=== PATIENT | female | born 1985 | race Asian ===

== ENCOUNTER 2025-07-14 08:29 | Outpatient (CLI) | payer BC, SELFPAY ==
--- NOTE | 2025-07-14 08:35 | EST_ITS ---
Patient Info Name: Cat Perez Age: 40 years : 1985 Gender: Female Ht: 63 in Wt: 150 lbs BSA: 1.76 m2 HR: 74 bpm BP: 108 / 48 mmHg Exam Date: 07/14/2025 8:35 AM Patient Status: O Admit Date: 07/14/2025 Exam Type: CA stress test treadmill A treadmill exercise stress test was performed. Staff Attending Provider: Aleksandr Perea DO Exercise Technologist: Carol Galicia Exercise Physician: Aleksandr Perea DO Summary 1. 1. Negative Toni exercise stress test for ischemic ST changes by ECG criteria. 2. 2. Good functional capacity, achieving 12 METs of workload. 3. 3. Appropriate HR response to exercise. 4. 4. Appropriate HR recovery at 1 minute post exercise. 5. 5. No imaging with stress testing. 6. 6. Patient informed of the above results. Protocol: Toni Stress ECG Details Stage: REST Duration (min): 1 min : 50 sec Speed (mph): 0.0 Grade (%): 0 HR (bpm): 73 SBP (mmHg): 108 DBP (mmHg): 48 METS: --- Stage: REST Duration (min): 3 min : 38 sec Speed (mph): 0.0 Grade (%): 0 HR (bpm): 72 SBP (mmHg): 108 DBP (mmHg): 48 METS: --- Stage: REST Duration (min): 16 min : 42 sec Speed (mph): 0.0 Grade (%): 0 HR (bpm): 79 SBP (mmHg): 108 DBP (mmHg): 48 METS: --- Stage: STAGE 1 Duration (min): 1 min : 0 sec Speed (mph): 1.7 Grade (%): 10 HR (bpm): 100 SBP (mmHg): 108 DBP (mmHg): 48 METS: --- Stage: STAGE 1 Duration (min): 2 min : 0 sec Speed (mph): 1.7 Grade (%): 10 HR (bpm): 103 SBP (mmHg): 108 DBP (mmHg): 48 METS: --- Stage: STAGE 1 Duration (min): 3 min : 0 sec Speed (mph): 1.7 Grade (%): 10 HR (bpm): 108 SBP (mmHg): 132 DBP (mmHg): 104 METS: --- Stage: STAGE 2 Duration (min): 1 min : 0 sec Speed (mph): 2.5 Grade (%): 12 HR (bpm): 120 SBP (mmHg): 132 DBP (mmHg): 104 METS: --- Stage: STAGE 2 Duration (min): 2 min : 0 sec Speed (mph): 2.5 Grade (%): 12 HR (bpm): 113 SBP (mmHg): 132 DBP (mmHg): 104 METS: --- Stage: STAGE 2 Duration (min): 3 min : 0 sec Speed (mph): 2.5 Grade (%): 12 HR (bpm): 126 SBP (mmHg): 132 DBP (mmHg): 104 METS: --- Stage: STAGE 3 Duration (min): 1 min : 0 sec Speed (mph): 3.4 Grade (%): 14 HR (bpm): 142 SBP (mmHg): 183 DBP (mmHg): 108 METS: --- Stage: STAGE 3 Duration (min): 2 min : 0 sec Speed (mph): 3.4 Grade (%): 14 HR (bpm): 150 SBP (mmHg): 183 DBP (mmHg): 108 METS: --- Stage: STAGE 3 Duration (min): 3 min : 0 sec Speed (mph): 3.4 Grade (%): 14 HR (bpm): 157 SBP (mmHg): 183 DBP (mmHg): 108 METS: --- Stage: STAGE 4 Duration (min): 1 min : 0 sec Speed (mph): 4.2 Grade (%): 16 HR (bpm): 181 SBP (mmHg): 183 DBP (mmHg): 108 METS: --- Stage: STAGE 4 Duration (min): 1 min : 0 sec Speed (mph): 4.2 Grade (%): 16 HR (bpm): 181 SBP (mmHg): 183 DBP (mmHg): 108 METS: --- Stage: RECOVERY Duration (min): 0 min : 59 sec Speed (mph): 0.0 Grade (%): 0 HR (bpm): 144 SBP (mmHg): 110 DBP (mmHg): 99 METS: --- Stage: RECOVERY Duration (min): 1 min : 59 sec Speed (mph): 0.0 Grade (%): 0 HR (bpm): 110 SBP (mmHg): 110 DBP (mmHg): 99 METS: --- Stage: RECOVERY Duration (min): 2 min : 59 sec Speed (mph): 0.0 Grade (%): 0 HR (bpm): 102 SBP (mmHg): 110 DBP (mmHg): 99 METS: --- Stage: RECOVERY Duration (min): 3 min : 59 sec Speed (mph): 0.0 Grade (%): 0 HR (bpm): 92 SBP (mmHg): 142 DBP (mmHg): 64 METS: --- Stage: RECOVERY Duration (min): 4 min : 59 sec Speed (mph): 0.0 Grade (%): 0 HR (bpm): 91 SBP (mmHg): 94 DBP (mmHg): 66 METS: --- Stage: RECOVERY Duration (min): 5 min : 15 sec Speed (mph): 0.0 Grade (%): 0 HR (bpm): 92 SBP (mmHg): 94 DBP (mmHg): 66 METS: --- Rest HR: 79 bpm Peak HR: 182 bpm Rest Sys BP: 108 mmHg Peak Sys BP: 183 mmHg Max Pred HR: 182 bpm % Max Pred HR: 100 % Target HR: 155 bpm Max RPP: 33,306 bpm*mmHg Canela Score: 1 Termination Reason: Reached target heart rate or workload Cardiac Symptoms: Shortness of breath Max ST Seg Deviation: -1.80 mm Total Time: 10 min : 0 sec Rest Noriega BP: 48 mmHg Peak Noriega BP: 108 mmHg Angina Score: None Total METS: 12.1 Resting ECG Sinus rhythm. Stress ECG No ST changes. Arrhythmias None. Report Signatures
--- OUTSIDE RECORDS SUMMARY | 2025-07-14 08:39 | XMS_ITS | Clinical Summary ---
Author Organization [facility] Address [address] [place] [address] Care Team Providers Care Malter Operator Name Role Phone ArleyKathy jasso Nirav PRO Primary Care Provider [phone] Source Comments [facility],non-owned Affiliates and Associated Physician Practices is amultiple site organization consisting of ambulatory clinics and hospital sitesin [place], [place], [place] and [place]. This disclosure is being madepursuant to the Care Everywhere program and may not contain all information available regarding this patient. Last updated 18.[facility] Allergies Active Allergy Reactions Criticality Noted Date Comments Bacitracin Rash Medium 04/15/2015 Lanolin Rash Medium 05/20/2015 Latex Rash Medium 04/15/2015 Nkblylom-Zyhmkmcccu-Srswzwdil Rash Medium 2017 Medications * Be aware that medications may not be up to date on this document. Alwaysverify current medications with the patient. Cetirizine HCl (ZYRTEC ALLERGY PO) Active montelukast (SINGULAIR) 10 MG tablet Take 1 tablet by mouth once daily 30 tablet 05/26/2019 Active Resolved Problems Problem Noted Date Diagnosed Date Resolved Date Acute pharyngitis 12/21/2018 01/04/2019 Family History Medical History Relation Name Comments Diabetes - Type 2 Paternal Grandmother Relation Name Status Comments Father Alive Mother Alive Paternal Grandmother Alive Social History Tobacco Use Types Packs/Day Years Used Date Smoking Tobacco: Never Smokeless Tobacco: Never Alcohol Use Standard Drinks/Week Comments No 0 (1 standard drink = 0.6 oz pur e alcohol) Comments No Sex and Gender Information Value Date Recorded Sex Assigned at Not on file Legal Sex Female 10:10 AM CDT Gender Identity Not on file Sexual Orientation Not on file Last Filed Vital Signs Vital Sign Reading Time Taken Comments Blood Pressure 120/84 08/07/2019 2:05 PM BLOWER FEEDER DYED RAW STOCK Pulse 89 08/07/2019 2:05 PM BLOWER FEEDER DYED RAW STOCK Temperature 36.9 C (98.5 F) 08/07/2019 2:05 PM BLOWER FEEDER DYED RAW STOCK Respiratory Rate 16 08/07/2019 2:05 PM BLOWER FEEDER DYED RAW STOCK Oxygen Saturation 95% 08/07/2019 2:05 PM BLOWER FEEDER DYED RAW STOCK Inhaled Oxygen Concentration - - Weight 68 kg (150 lb) 08/07/2019 2:05 PM BLOWER FEEDER DYED RAW STOCK Height 160 cm (5' 3) 08/07/2019 2:05 PM BLOWER FEEDER DYED RAW STOCK Body Mass Index 26.57 08/07/2019 2:05 PM BLOWER FEEDER DYED RAW STOCK Plan of Treatment Health Maintenance Due Date Last Done Comments HIV SCREENING 2002 HEPATITIS C SCREENING 05/16/2005 DTAP/TDAP/TD VACCINES (1 - Tdap) 2006 HEPATITIS B VACCINE (1 of 3 - 19+ 3-dose series) 2006 HPV VACCINE (1 - 3-dose SCDM series) 2014 DEPRESSION SCREENING 09/21/2024 COVID-19 VACCINE (1 - 2023-2 5 season) 2025 INFLUENZA VACCINE (#1) 2025 9, 05/22/2014 ZOSTER VACCINE (1 of 2) 2037 HIB VACCINE Aged Out No longer eligi ble based on patient's age to complete this topic MENINGOCOCCAL (Group B) VACCINE SHARED DECISION-MAKING Aged Out No longer eligible based on patient's age to complete this topic MENINGOCOCCAL GROUPS A/C/Y/W VACCINE Aged Out No longer eligible b ased on patient's age to complete this topic PNEUMOCOCCAL VACCINE Aged Out No long er eligible based on patient's age to complete this topic Insurance [facility] Address[facility] [id number] [place] [phone] Care Teams Malter Operator Relationship Specialty Start Date End Date Kathy Flowers DO [address] [place] [address] [address] [place] [address] PCP - General Obstetrics and Gynecology 01/13/18
--- OUTSIDE RECORDS SUMMARY | 2025-07-14 08:39 | XMS_ITS | Clinical Summary ---
Author Organization [facility] Address [address] [place] [address] Care Team Providers Care Heel Stiffener Name Role Phone Cole Soler MD Primary Care Provider No, Physician Unavailable Allergies Active Allergy Reactions Criticality Noted Date Comments Bacitracin Rash Medium 04/15/2015 Lanolin Rash Medium 05/20/2015 Latex Itching,Rash Medium 04/15/2015 Eargjqek-Ombtujxtru-Alfklrgil Rash Medium 2017 Medications montelukast (SINGULAIR) 10 mg tablet Take 1 tablet (10 mg total) by mouth daily 05/26/2019 Active cetirizine (ZyrTEC) 10 mg tablet Take by mouth Active Active Problems No known active problems Medical History Medical History Date Comments Known health problems: none Social History Tobacco Use Types Packs/Day Years Used Date Smoking Tobacco: Never Assessed Passive Smoke Exposure: Never Smokeless Tobacco: Never Tobacco Cessation:Counseling Given: Not Answered Personal Safety Answer Date Recorded Have you ever been in or are you currently in a harmful physical or emotional relationship or is someone making you feel afraid or unsafe? Denies 04/03/2023 Comments No Sex and Gender Information Value Date Recorded Sex Assigned at Not on file Legal Sex Female 12:03 PM CDT Gender Identity Not on file Sexual Orientation Not on file Obstetrics History Last Filed Vital Signs Vital Sign Reading Time Taken Comments Blood Pressure 110/70 06/12/2023 3:04 PM CDT Pulse 92 06/12/2023 3:04 PM CDT Temperature 37.1 C (98.7 F) 06/12/2023 3:04 PM CDT Respiratory Rate 18 06/12/2023 3:04 PM CDT Oxygen Saturation 99% 06/12/2023 3:04 PM CDT Inhaled Oxygen Concentration - - Weight 69.4 kg (153 lb) 06/12/2023 3:04 PM CDT Height 160 cm (5' 3) 06/12/2023 3:04 PM CDT Body Mass Index 27.1 06/12/2023 3:04 PM CDT Plan of Treatment Health Maintenance Due Date Last Done Comments Cervical Cancer Screening 1987 Depression Screening 1987 Hepatitis C Screening 1987 Varicella Vaccines (1 of 2 - 13+ 2-dose series) 2000 Hepatitis B Screening 2005 Regular Well Visit/Exam 18-64 2005 HPV Vaccines (1 - 3-dose SCD M series) 2014 DTaP/Tdap/Td Vaccine (2 - Td or Tdap) 03/14/2025 03/14/2015 Covid-19 Vaccine (4 - 2024-2 6 season) 2025 08/20/2021, 12/15/2020, 11/20/2020 Influenza Vaccine (#1) 2025 , 05/22/2014 Pneumococcal vaccine <65 Aged Out No longer eligible based on patient's age to complete this topic Insurance BLUE ACC CHOICE OOS ANTHEM ACCESS CHOICE Care Teams Heel Stiffener Relationship Specialty Start Date End Date Cole Soler MD [address] [place], [place] [address] [address] PCP - General Family Medicine 04/03/23 No, Physician 04/03/23
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
--- OUTSIDE RECORDS SUMMARY | 2025-07-14 08:39 | XMS_ITS | Clinical Summary ---
Author Organization [facility] Address [address] [place] [id number] Care Team Providers Care Manager Retirement Name Role Phone Unavailable Primary Care Provider Unavailabl e Social History Tobacco Use Types Packs/Day Years Used Date Smoking Tobacco: Never Assessed Comments Unknown Sex and Gender Information Value Date Recorded Sex Assigned at Not on file Legal Sex Female 9:02 AM CDT Gender Identity Not on file Sexual Orientation Not on file Plan of Treatment Health Maintenance Due Date Last Done Comments Hepatitis C Virus (HCV) Screening 1985 TdaP Immunization 1987 Hepatitis B Immunization (1 of 3 - 19+ 3-dose series) 2006 Pap Smear 2008 Human Papillomavirus (HPV) Immunization (1 - 3-dose SCDM series) 2014 Cervical Cancer Screening (CCS) 2017 HPV/Cotest 2017 Influenza Immunization (#1) 2025 08/20/2021 SARS-COV-2 Immunization ( season) 2025 08/20/2021, 12/15/2020, 11/20/2020 Respiratory Syncytial Virus (RSV) Immunization (Adult) (1 - 1-dose 75+ series) 2062 Meningococcal Immunization (ACWY) Aged Out No longer eligible b ased on patient's age to complete this topic Pneumococcal Immunization Combined Aged Out No longer eligible b ased on patient's age to complete this topic Rotavirus Immunization Aged Out No lo nger eligible based on patient's age to complete this topic
== END 2025-07-14 08:30 | disposition home or self-care (01) ==
LOC: ANHCARD 08:33
PROVIDERS: PCP Emergency Medicine; Visit Provider Internal Medicine Cardiovascular Disease
DX: R07.9 Chest pain, unspecified (principal)
CPT/HCPCS: 93017

== ENCOUNTER 2025-08-26 17:02 | Emergency (ER) | payer BC, SELFPAY ==
[2025-08-26] VITALS (7 sets, daily range): BP systolic 117–143; BP diastolic 73–100; PULSE 72–83; RESP 14–21; TEMP 36.4–36.8; O2SAT 97–100
--- NOTE | ~2025-08-26 | XR_ITS ---
EXAMINATION: XR chest 2V, 08/26/2025 17:18 APPOINTMENT MANAGER HISTORY: cp COMPARISON: No comparisons available. Technique: 2 views obtained. Findings: The lungs are clear, no effusion. No pneumothorax. Heart is normal size. Mediastinal and hilar contours are within normal limits. Bony thorax no acute abnormality. Impression: No acute cardiopulmonary abnormality. Reviewed, dictated and finalized at location P. INTMENT MANAGER Impression: No acute cardiopulmonary abnormality.
--- NOTE | 2025-08-26 17:05 | ECG_ITS ---
Test Date: 2025-08-26 17:11:28 Measurements Intervals [place] Rate: 94 P: 48 IL: 148 QRS: 30 QRSD: 77 T: 42 QT: 347 QTc: 435 Interpretive Statements SINUS RHYTHM BASELINE ARTIFACT- I, III, AVR, AVL, AVF, V1-V6 NORMAL ECG No previous ECG available for comparison Electronically Signed On 08-27-2025 09:29:13 PLANT MECHANIC by Aleksandr Perea D.O.
--- OUTSIDE RECORDS SUMMARY | 2025-08-26 17:05 | XMS_ITS | Clinical Summary ---
Author Organization [facility] Address [address] [employer] | [place] [address] Care Team Providers Care Top Hat Body Maker Name Role Phone No, Pcp ASSISTANT CORPORATE CONTROLLER Primary Care Provider Unavailabl e Allergies Active Allergy Reactions Criticality Noted Date Comments Neosporin G.U. Irrigant Rash Low 07/15/2019 Medications montelukast (SINGULAIR) 10 mg tablet TAKE 1 TABLET BY MOUTH EVERY DAY 0 05/26/2019 Active Immunizations Immunization Administration Dates Next Due Flucelvax Trivalent PFS IM; Without Preservative (18+ mos) 07/15/2019 Family History Relation Status Comments Father Alive Mother Alive Social History Tobacco Use Types Packs/Day Years Used Date Smoking Tobacco: Never Smokeless Tobacco: Never Comments No Sex and Gender Information Value Date Recorded Sex Assigned at Not on file Legal Sex Female 9:01 AM EDT Gender Identity Not on file Sexual Orientation Not on file Last Filed Vital Signs Vital Sign Reading Time Taken Comments Blood Pressure 103/60 07/15/2019 9:37 AM CDT Pulse 63 07/15/2019 9:37 AM CDT Temperature 36.4 C (97.5 F) 07/15/2019 9:37 AM CDT Respiratory Rate 16 07/15/2019 9:37 AM CDT Oxygen Saturation 99% 07/15/2019 9:37 AM CDT Inhaled Oxygen Concentration - - Weight 69.4 kg (153 lb) 07/15/2019 9:37 AM CDT Height 160 cm (5' 3) 07/15/2019 9:37 AM CDT Body Mass Index 27.1 07/15/2019 9:37 AM CDT Plan of Treatment Not on file Medical Devices Not on file Care Teams Top Hat Body Maker Relationship Specialty Start Date End Date No, Pcp, ASSISTANT CORPORATE CONTROLLER N/A Do not use PCP - General Family Medicine 07/15/19"
--- OUTSIDE RECORDS SUMMARY | 2025-08-26 17:05 | XMS_ITS | Clinical Summary ---
Author Organization [facility] Address [address] [place] [address] Phone Care Team Providers Care Personalized Living Manager Nurse Name Role Phone Unavailable Primary Care Provider Unavailabl e Allergies Active Allergy Reactions Criticality Noted Date Comments Bacitracin Rash Medium 04/15/2015 Lanolin Rash Medium 05/20/2015 Latex Rash Medium 04/15/2015 Kaafakfn-Iszsdsbtdy-Gojguzmcp Rash Medium 2017 Neosporin G.U. Irrigant Rash [...] Comments Blood Pressure 120/60 11/22/2020 1:25 PM AUTOMOBILE RACER Pulse 73 01/08/2017 7:27 AM CDT Temperature 36.5 C (97.7 F) 01/08/2017 7:27 AM CDT Respiratory Rate 20 01/08/2017 7:27 AM CDT Oxygen Saturation 98% 01/08/2017 7:27 AM CDT Inhaled Oxygen Concentration - - Weight 67.9 kg (149 lb 12.8 oz) 11/22/2020 1:25 PM AUTOMOBILE RACER Height 160 cm (5' 3) 11/22/2020 1:25 PM AUTOMOBILE RACER Body Mass Index 26.54 11/22/2020 1:25 PM AUTOMOBILE RACER Plan of Treatment Health Maintenance Due Date [...] BASED SCREEN PAP Routine 11/22/2020 3:11 PM AUTOMOBILE RACER Encounter for gynecological examination without abnormal finding Routine cervical smear Special screening examination for human papillomavirus (HPV) from Last 3 Months or Most Recently Relevant to Health Maintenance Results * (ABNORMAL) CERV/VAG CYTO AGE BASED SCREEN PAP (11/22/2020 3:11 PM AUTOMOBILE RACER) COMMENT (PAP): SEE COMMENT 3:27 PM AUTOMOBILE RACER [facility] Comment: This order for age-based cervical cancer and STI screening follows ACOG guidelines(PB 168, 140, AHG036). See individual assays for performing site location. CLINICAL INFORMATION Information not provided 11/28/2020 3:27 PM AUTOMOBILE RACER [facility] LAST MENSTRUAL PERIOD INFORMATION NOT PROVIDED 11/28/2020 3:27 PM AUTOMOBILE RACER [facility] PREV PAP: INFORMATION NOT PROVIDED 11/28/2020 3:27 PM AUTOMOBILE RACER [facility] PREV BX: INFORMATION NOT PROVIDED 11/28/2020 3:27 PM AUTOMOBILE RACER [facility] SOURCE Endocervix 11/28/2020 3:27 PM AUTOMOBILE RACER [facility] ADEQUACY: SEE COMMENT 11/28/2020 3:27 PM AUTOMOBILE RACER [facility] Comment: Satisfactory for evaluation. Endocervical/transformation zone component present. Age and/or menstrual status not provided GENERAL CATEGORIZATION: EPITHELIAL CELL ABNORMALITY(A) 11/28/2020 3:27 PM AUTOMOBILE RACER [facility] PAP INTERP Atypical Squamous Cells of Undetermined Significance (ASC-US)(A) 11/28/2020 3:27 PM AUTOMOBILE RACER [facility] COMMENT SEE COMMENT 11/28/2020 3:27 PM AUTOMOBILE RACER [facility] Comment: This Pap test has been evaluated with computer assisted technology. Suggest clinical correlation and follow-up as clinically appropriate FILL MANAGER: SEE COMMENT 2020 3:27 PM AUTOMOBILE RACER [facility] Comment: CLAUDIA, CT(ASCP) CT screening location: [place] [address] [place] [address] PATHOLOGIST SEE COMMENT 11/28/2020 3:27 PM [facility] Comment: Negro Shrestha M.D., Board Certified in Anatomic Pathology and Cytopathology. (electronic signature) EXPLANATORY NOTE SEE COMMENT 3:27 PM AUTOMOBILE RACER [facility] Comment: EXPLANATORY NOTE: The Pap is a [...] Not Detected Not Detected 11/28/2020 3:27 PM AUTOMOBILE RACER [facility] Comment: Methodology: Epic Ambulatory Analyst-Mediated Amplification This assay detects E6/E7 viral messenger RNA (mRNA) from 14 high-risk HPV types (16,18,31,33,35,39,45,51,52,56,58,59,66,68). The analytical performance characteristics of this assay have been determined by [employer]. The modifications have not been cleared or approved by the FDA. This assay has been validated pursuant to the CLIA regulations and is used for clinical purposes. For additional information, please refer to http://education.Ortho [employer] Management/faq/BCX445x3 (This link if provided for information/ educational purposes only.) Genital SWAB OF ENDOCERVIX / Unknown Collection / Unknown 11/22/2020 3:11 PM AUTOMOBILE RACER 11/22/2020 7:18 PM AUTOMOBILE RACER Narrative [facility] - 11/28/2020 3:27 PM AUTOMOBILE RACER Performing Organization Information: Site ID: [id number] [facility] Address: [address] [place] [address] Director: Christopher Agarwal D.O., MPH Site ID: [id number] Name: [facility] Address: [address] [place] [address] Director: Divine Leach Kathy Flowers DO PATHOLOGY/CYTOLOGY ORDERABLES Final Result [facility] [phone] from Last 3 Months or Most Recently Relevant to Health Maintenance Insurance [facility] BLUE ACCESS CHOICE Advance Directives For more information, please contact: [phone] * Full Code (Latest Code Status on [...]
--- OUTSIDE RECORDS SUMMARY | 2025-08-26 17:05 | XMS_ITS | Clinical Summary ---
Author Organization [facility] Address [address] [place] [address] Care Team Providers Care Trout Farmer Name Role Phone ArleyKathy jasso Nirav PRO Primary Care Provider [phone] Source Comments [facility],non-owned Affiliates and Associated Physician Practices is amultiple site organization consisting of ambulatory clinics and hospital sitesin [place], [place], [place] and [place]. This disclosure is being madepursuant to the Care Everywhere program and may not contain all information available regarding this patient. Last updated 18.[facility] Allergies Active Allergy Reactions Criticality Noted Date Comments Bacitracin Rash Medium 04/15/2015 Lanolin Rash Medium 05/20/2015 Latex Rash Medium 04/15/2015 Wpbscrht-Atwdnyzaie-Agvizabrx Rash Medium 2017 Medications * Be aware [...] Comments Blood Pressure 120/84 08/07/2019 2:05 PM LEI SELLER Pulse 89 08/07/2019 2:05 PM LEI SELLER Temperature 36.9 C (98.5 F) 08/07/2019 2:05 PM LEI SELLER Respiratory Rate 16 08/07/2019 2:05 PM LEI SELLER Oxygen Saturation 95% 08/07/2019 2:05 PM LEI SELLER Inhaled Oxygen Concentration - - Weight 68 kg (150 lb) 08/07/2019 2:05 PM LEI SELLER Height 160 cm (5' 3) 08/07/2019 2:05 PM LEI SELLER Body Mass Index 26.57 08/07/2019 2:05 PM LEI SELLER Plan of Treatment Health Maintenance Due Date Last Done Comments HIV SCREENING 2002 HEPATITIS C SCREENING 05/16/2005 DTAP/TDAP/TD VACCINES (1 - Tdap) 2006 HEPATITIS B VACCINE (1 of 3 - 19+ 3-dose series) 2006 HPV VACCINE (1 - 3-dose SCDM series) 2014 DEPRESSION SCREENING 09/21/2024 COVID-19 VACCINE (1 - 2024-2 6 season) 2025 INFLUENZA VACCINE (#1) 2025 9, [...] patient's age to complete this topic Insurance [facility] Care Teams Trout Farmer Relationship Specialty Start Date End Date Kathy Flowers DO [address] [place] [address] [address] [place] [address] PCP - General Obstetrics and Gynecology 01/13/18
--- OUTSIDE RECORDS SUMMARY | 2025-08-26 17:05 | XMS_ITS | Clinical Summary ---
Author Organization [facility] Address [address] [place] [id number] Care Team Providers Care Online Tutor Name Role Phone Unavailable Primary Care Provider [...] Virus (HCV) Screening 1987 TdaP Immunization 1987 Varicella Immunization (1 of 2 - 13+ 2-dose series) 2000 Hepatitis B Immunization (1 of 3 - [...]
--- OUTSIDE RECORDS SUMMARY | 2025-08-26 17:05 | XMS_ITS | Clinical Summary ---
Author Organization [facility] Address [address] [place] [address] Care Team Providers Care News Clipping Cutter Name Role Phone Cole Soler MD Primary Care Provider No, Physician Unavailable Allergies Active Allergy Reactions Criticality Noted Date Comments Bacitracin Rash Medium 04/15/2015 Lanolin Rash Medium 05/20/2015 Latex Itching,Rash Medium 04/15/2015 Cnqadksc-Leucnlvgtu-Qkhyrqkbx Rash Medium 2017 Medications montelukast (SINGULAIR) 10 mg tablet Take 1 tablet (10 mg total) by mouth daily 05/26/2019 Active cetirizine (ZyrTEC) 10 mg tablet Take by mouth Active ferrous sulfate 325 mg (65 mg of elemental iron) tablet Take 1 tablet (325 mg total) by mouth daily 06/28/2025 Active Hospital, Clinic, or Other Facility Administered Medication Ordered Dose Route Frequency Start Date End Date Status levonorgestreL (MIRENA) 21 mcg/24hr (up to 8 yrs) 52 mg IUD 1 eachIndications:Pre gnancy Contraception 1 each intrauterine Continuous (implanted device) 08/11/2025 0 Active Active Problems No known active problems Encounters Date Type Department Care Team Description 08/11/2025 10:30 AM CODING ASSISTANT Procedure visit [facility] Medicine Obstetrics and Gynecology [address] 7th [address] [place] [address] Taz cosby, Debra Pierson NP Encounter for insertion of Mirena IUD (Primary Dx); Menorrhagia with regular cycle 08/10/2025 Telephone [facility] Medicine Obstetrics and Gynecology [address] 7th [address] [place] [phone] Rox Joseph 08/09/2025 2:30 PM CODING ASSISTANT Procedure visit [facility] Medicine Obstetrics and Gynecology [address] [place] [address] 7th Floor [address] [place] [address] Delphine Blue NP Menorrhagia with regular cycle (Primary Dx) 08/09/2025 1:40 PM CODING ASSISTANT - 08/09/2025 11:59 PM CODING ASSISTANT Hospital Encounter [facility] - Ultrasound [address] [place] [address], 7th Floor, [address] [place] [address] Menorrhagia with regular cycle Discharge Disposition: Discharge to home or self care 07/25/2025 Results Follow-Up [facility] Obstetrics and Gynecology [address] [place] [address] 7th Floor [address] [place] [address] Delphine Blue NP Pap and High Risk HPV and Genotyping (Cytology Component) 07/18/2025 1:59 PM CDT - 07/18/2025 11:59 PM CDT Hospital Encounter [facility] [address] [place] [address] Well woman exam Discharge Disposition: Discharge to home or self care 07/18/2025 1:00 PM CDT Office Visit [facility] Medicine Obstetrics and Gynecology [address] [place] [address] 7th [address] [place] [phone] Delphine Blue NP Well woman exam (Primary Dx); LILI (stress urinary incontinence, female); Counseling for control regarding intrauterine device (IUD); Menorrhagia with regular cycle; Other iron deficiency anemia; HPV vaccine counseling from Last 3 Months Medical History Medical History Date Comments Known health problems: none Social History Tobacco Use Types Packs/Day Years Used Date Smoking Tobacco: Never Passive Smoke Exposure: Never Smokeless Tobacco: Never Personal Safety Answer Date Recorded Have you [...] Sexual Orientation Not on file Obstetrics History Para Term AB IAB SAB Ectopic Multiple Livin g Live Births 2 2 2 2 2 Date Outcome GA Total Labor Labor/2nd/3rd Weight Sex Type Anes PTL Ana A1 A5 Name Clin 2014 Term 40w 4d 10h 18m 9h 00m/1h 14m/0h 04m F Vag-S pont Combin ed Spinal /Epidu ral N Livin g 8 9 Keturah jasso Complications:None Delivery Location:[facility] Comments:No observed a nomalies 2016 Term 40w 2d 4h 36m 4h 00m/0h 32m/0h 04m 3.856 kg (8 lb 8 oz) F Vag-S pont N Livin g 7 9 HECKEL MAN,GI [id number] KELSIE Herrm olivia Complications:None [facility] Comments:No observed a nomalies Last Filed Vital Signs Vital Sign Reading Time Taken Comments Blood Pressure 111/68 08/11/2025 10:17 AM CODING ASSISTANT Pulse 92 06/12/2023 3:04 PM CDT Temperature 37.1 C (98.7 F) 06/12/2023 3:04 PM CDT Respiratory Rate 18 06/12/2023 3:04 PM CDT Oxygen Saturation 99% 06/12/2023 3:04 PM CDT Inhaled Oxygen Concentration - - Weight 69.2 kg (152 lb 9.6 oz) 08/11/2025 10:17 AM CODING ASSISTANT Height 160 cm (5' 3) 08/11/2025 10:17 AM CODING ASSISTANT Body Mass Index 27.03 08/11/2025 10:17 AM CODING ASSISTANT Plan of Treatment Health Maintenance Due Date Last Done Comments Depression Screening 1987 Hepatitis C Screening 1987 Varicella Vaccines (1 of 2 - 13+ 2-dose series) 2000 Hepatitis B Screening 2005 HPV Vaccines (1 - 3-dose SCD M series) 2014 DTaP/Tdap/Td Vaccine (2 - Td or Tdap) 03/14/2025 03/14/2015 Covid-19 Vaccine (4 - 2024-2 6 season) 2025 08/20/2021, 12/15/2020, 11/20/2020 Influenza Vaccine (#1) 2025 , 07/15/2019, 05/22/2014 Cervical Cancer Screening 07/18/20262024, 07/18/2025 Regular Well Visit/Exam 18-64 07/18/2026 07/18/2025 Pneumococcal vaccine <65 Aged Out No longer eligible based on patient's age to complete this topic Procedures Procedure Name Priority Date/Time Associated Diagnosis Comments POCT HCG, URINE Routine 08/11/2025 10:29 AM CODING ASSISTANT Encounter for insertion of Mirena IUD US PELVIS COMPLETE Schedule Routine, Read Routine (OP Routine) 08/09/2025 1:40 PM CODING ASSISTANT Menorrhagia with regular cycle PAP AND HIGH RISK HPV, REFLEX TO GENOTYPING Routine 07/18/2025 1:59 PM CDT Well woman exam HIGH RISK HPV DNA DETECTION WITH GENOTYPING Routine 07/18/2025 1:51 PM CDT Well woman exam from Last 3 Months Results * POCT hCG, urine (08/11/2025 10:29 AM CODING ASSISTANT) HCG, ur, POC Negative Negative Lot Number [id number] QC Backgroud Clear Acceptable QC Control Line Acceptable Urine 08/11/2025 10:2 9 AM CODING ASSISTANT Debra Guzman RESEARCH AND DEVELOPMENT MANAGER POINT OF CARE TEST ORDERABLES Final Result * US Pelvis Complete (08/09/2025 1:40 PM CODING ASSISTANT) Cul de Sac Free fluid visualized VIEWPOINT Endometrial Thickness 13.4 mm&millim eters VIEWPOINT Anatomical Region Laterality Modality Pelvis N/A Ultrasound 08/09/2025 1:41 PM CODING ASSISTANT Impressions 08/09/2025 2:37 PM CODING ASSISTANT 1. The uterus is retroverted and retroflexed, normal in size and contour. 2. No focal endometrial or myometrial lesions. There is free fluid present in the uterine cavity. 3D coronal imaging is unremarkable. Endometrial thickness is 13mm 3. Normal ovaries bilaterally. No adnexal masses were seen. 4. Moderate amount of pelvic free fluid Narrative Procedure Note Mary De La O MD - 08/09/2025 IMPRESSION: 1. The uterus is retroverted and retroflexed, normal in size andcontour. 2. No focal endometrial or myometrial lesions. There is free fluid presentin the uterine cavity. 3D coronal imaging is unremarkable. Endometrialthickness is 13mm 3. Normal ovaries bilaterally. No adnexal masses were seen. 4. Moderate amount of pelvic free fluid Delphine Blue NP IMG US PROCEDURES Fi nal Result * Pap and High Risk HPV and Genotyping (Cytology Component) (07/18/2025 1:59 PM CDT) Thin prep (Pap test) 07/18/2025 1:59 PM CDT 07/18/2025 2:50 PM CDT Narrative PATHOLOGY [facility] - 07/25/2025 7:04 AM CODING ASSISTANT EPIC results best viewed via link to PDF [facility] [place] [address] Note to Patients: This report may contain a detailed description of human tissue sent by a health care provider to the laboratory for pathologic evaluation. The content of this report is essential for diagnosis and may provide important critical findings. This information may be unfamiliar to patients to review without a medical professional present. It is advised that the patient review this report in the presence of a health care provider who can answer questions and explain the details. CYTOPATHOLOGY REPORT FINAL Patient Name: CAT PEREZ Gender: F : 1985 (Age: 40) Address: [address] [place] [id number] Hospital #: [id number] Service: UNKNOWN Location: Patient Type: [facility] SPECIMEN Taken: 07/18/2025 Received: 07/18/2025 Accessioned: 07/19/2025 Reported: 07/25/2025 Physician(s): Delphine Blue NP FINAL INTERPRETATION SOURCE OF SPECIMEN Liquid based Thin Prep pap with HPV: STATEMENT OF ADEQUACY - Satisfactory for evaluation - Endocervical cells/transformation zone sample present GENERAL CATEGORIZATION: - Negative for squamous intraepithelial lesion or malignancy INTERPRETATION: - Acute inflammation present Comments (Normal-Negative for High Risk HPV) HPV HR 16- Not Detected HPV HR 18-Not Detected HPV HR non 16/18- Not Detected Interpretive Data Nucleic acid amplification for detection of high-risk Human Papilloma virus (HPV) is performed by the Madhav Laurie 6800 HPV test. This assay specifically detects HPV- 16 and HPV-18 genotypes. The following HPV genotypes are detected as high-risk HPV: HPV-31, 33, 35, 39, 45, 51, 52, 56, 58, 59, 66, and 68. This assay has been approved by the [place] Food and Drug Administration for detection of HPV in cervical specimens collected by a physician using an endocervical brush/spatula or cervical broom and placed in the ThinPrep Pap Test PreservCyt collection containers. The performance characteristics of this test have been verified by the [facility] Molecular Infectious Disease laboratory. Correlate with reported cytology results, as applicable. Interpretive data last revised 23 This specimen has been rescreened in accordance with this laboratory's Ethyl Blender Program. tc/07/25/2025 07:04 BLANKA Nguyen(ASCP), CMIAC Report Electronically Reviewed and Signed Out By VIOLETA Valverde (ASCP) 07/25/2025 07:04:07 Cervicovaginal Cytology (Pap Test) Disclaimer: The Pap test is a screening test used to detect cervical cancer and its precursors; it is not a diagnostic procedure. False negative and false positive results do occur. Pap test results should be interpreted in the context of pertinent clinical information and biopsy results as indicated. [facility] Clinical Laboratory Improvement Amendments (CLIA) mandate that cytologic and histologic results be correlated for laboratory software quality automation engineer & improvement standards. FOR ALL HIGH-GRADE CASES we request submission of follow-up histological material and/or reports that have not been previously provided so that we may fulfill said required standards. Gross Description A. Liquid based Thin Prep pap with HPV: Cervical/vaginal - Screening ThinPrep Clinical Diagnosis and History Last Menstrual Period: 06/19/2025 The patient is a 40 year old female with ASCUS/HPV-. Report Images and scanned documents, if included only viewable in PDF version The performance characteristics of some immunohistochemical stains, in-situ hybridization and fluorescence in-situ hybridization tests and immunophenotyping by flow cytometry cited in this report (if any) were determined by the Surgical Pathology Department at [facility] as part of an ongoing quality compliance manager program and in compliance with federally mandated regulations drawn from the Clinical Laboratory Improvement Act of 1988 (CLIA '88). Some of these tests rely on the use of analyte specific reagents and are subject to specific labeling requirements by the US Food and Drug Administration. Such diagnostic tests may only be performed in a facility that is certified by the Department of Health and Human Services as a high complexity laboratory under CLIA '88. The FDA has determined that such clearance or approval is not necessary. This test is used for clinical purposes. It should not be regarded as investigational or for research. Nevertheless, federal rules concerning the medical use of analyte specific reagents require that the following disclaimer be attached to the report: This test was developed and its performance characteristics determined by the Surgical Pathology Department of [facility]. It has not been cleared or approved by the U. S. Food and Drug Administration. Delphine Blue NP LAB CYTOLOGY ORDERAB LES Final Result PATHOLOGY [facility] 3rd Floor [place], [place] [phone] * High Risk HPV DNA Detection with Genotyping (Molecular component) (07/18/2025 1:51 PM CDT) HPV HR 16 Not Detected Not Detected [facility] HPV HR 18 Not Detected Not Detected [facility] HPV HR Non 16/18 Not Detected Not Detected [facility] Comment: Interpretive Data Nucleic acid amplification for detection of high-risk Human Papilloma virus (HPV) is performed by the Madhav Laurie 6800 HPV test. This assay specifically detects HPV-16 and HPV-18 genotypes. The following HPV genotypes are detected as high-risk HPV: HPV-31, 33, 35, ,39, 45, 51, 52, 56, 58, 59, 66, and 68. This assay has been approved by the [place] Food and Drug Administration for detection of HPV in cervical specimens collected by a physician using an endocervical brush/spatula or cervical broom and placed in the ThinPrep Pap Test PreservCyt collection containers. The performance characteristics of this test have been verified by the [facility] Molecular Infectious Disease laboratory. Correlate with separately reported cytology results, as applicable. Interpretive data last revised 23 Endocervical 07/18/2025 1:51 PM CDT 07/20/2025 10:46 AM CDT Narrative [facility] - 07/21/2025 2:58 PM CDT Clinical history and diagnosis->ASCUS/HPV- Number of vials->1 Testing type->Screening Last menstrual period (date if known)->06/19/2025 Delphine Blue NP LAB BODY FLUIDS AND STOOLS ORDERABLES Final Result [facility] [place] [address] [facility] from Last 3 Months Insurance [employer] ACCESS CHOICE [employer] ACCESS CHOICE [employer] ACCESS CHOICE Care Teams News Clipping Cutter Relationship Specialty Start Date End Date Cole Soler MD [address] [place], [place] [address] [address] PCP - General Family Medicine 04/03/23 No, Physician 04/03/23
[2025-08-26 17:22] LABS: Hematocrit 36.1 % (37.0-47.0); Hemoglobin 11.4 g/dL (12.0-15.0); Immature Granulocyte Percent A 0.4 % (0-0.5); Lymphocytes Absolute Auto 2.18 K/mm3 (0.9-3.2); Mean Corpuscular HGB Conc 31.6 g/dl (32-36); Mean Corpuscular Hemoglobin 25.1 pg (26-34); Mean Corpuscular Volume 79.5 fl (80-100); Nucleated Red Blood Cells Absolute Auto 0.000 K/mm3 (0.0-0.012); Nucleated Red Blood Cells Perc 0.0 % (0.0-0.2); Platelet Count Result 308 k/mm3 (150-375); Red Blood Count 4.54 M/mm3 (4.2-5.4); White Blood Count 10.1 K/mm3 (4.5-10.0)
[2025-08-26 17:32] LABS: INR 1.0; Prothrombin Time 12.9 Seconds (11.1-14.7)
[2025-08-26 17:33] LABS: Partial Thromboplastin Time 26.7 Seconds (22.3-36.8)
[2025-08-26 17:36] LABS: Alanine Aminotransferase 16 U/L (6-35); Albumin Level 4.7 g/dL (3.5-5.1); Alkaline Phosphatase 68 U/L (38-126); Anion Gap 9 mmol/L (4-12); Aspartate Amino Transferase 21 U/L (14-36); Bilirubin,Total 0.3 mg/dL (0.2-1.3); Blood Urea Nitrogen 12 mg/dL (7-17); Calcium 9.1 mg/dL (8.4-10.2); Carbon Dioxide 23 mmol/L (22-30); Chloride 106 mmol/L (98-107); Estimated CRCL calculation 68 ml/min; Estimated Glomerular Filt Rate > 60; Glucose 127 mg/dL (65-110); Lipase 195 U/L (23-300); Potassium 3.8 mmol/L (3.4-5.0); Sodium 138 mmol/L (137-145); Total Protein 7.8 g/dL (6.3-8.2)
[2025-08-26 17:47] LABS: Troponin I < 0.012 ng/mL (0.000-0.034)
[2025-08-26] MEDS: ASPIRIN 81 MG CHEWABLE TABLET 324 MG PO (18:08)
--- NOTE | 2025-08-26 19:37 | ED.CHESTPAIN ---
HPI - Chest Pain General Chief Complaint: Chest Pain Stated Complaint: chest pain & palpitations Time Seen by Provider: 08/26/25 19:17 Source: patient and family Mode of arrival: ambulatory Limitations: no limitations History of Present Illness HPI narrative: Patient is a 40-year-old female presents to the emergency department accompanied by significant other complaining of chest tightness and shortness of breath and near passing out. Patient notes around 3:00 p.m. today she was at a recital and started to feel some chest tightness shortness of breath over the head like she was going to pass out, later head down, notes that the auditorium was very hot, did not pass out became close. Shortness of breath and chest tightness persisted prompting her to come in for further evaluation. Patient notes her symptoms have since resolved. Patient admits to a history of wearing a Holter monitor. Did not have any episodes while wearing the Holter monitor. Notes that she had a stress test done in June. Denies any personal history of heart disease. Denies any new or change medications but did start with an IUD for anemia and it is a hormone IUD. Denies any nausea, vomiting, diarrhea, melena, hematochezia, fever, cough, recent injuries, recent illness, abdominal pain, focal weakness, numbness, history of abnormal heart rhythms. Admits top staying fairly well hydrated. Denies history of blood clots. Notes that her symptoms have since resolved and she feels well at this time. Related Data Home Medications ?Medication ?Instructions ?Recorded ?Confirmed ?Last Taken ?Type No Home Medications 06/23/25 06/23/25 Unknown History Allergies Allergy/AdvReac Type Severity Reaction Status Date / Time latex Allergy Mild Unknown Verified 08/26/25 17:05 NKDA Allergy Mild Other Uncoded 08/26/25 21:17 Review of Systems Review of Systems: A 10 system review of systems was completed on the patient and is negative except for what is stated in the HPI. Nursing and ancillary documentation was reviewed. PMFSH Social History Social History Smoking status: Never smoker Exam Narrative: CONST: No acute distress. Well nourished. HENMT: Head is normocephalic and atraumatic. Moist mucous membranes. No posterior oropharynx erythema. EYES: No scleral icterus. No conjunctival injection or pallor. PERRL. NECK: No meningeal signs. RESP: Able to speak in full sentences. Normal respiratory effort. CTAB. CARDIO: Regular rate. Regular rhythm. 2+ DP and radial pulses bilaterally. GI: Nondistended. No tenderness to palpation. Soft. : No CVA tenderness to palpation. SKIN: No rashes or lesions noted on exposed skin. NEURO: Oriented x3. Moves all extremities. EXTREM/MSK/BACK: No pedal edema. PSYCH: Normal affect. Course Vital Signs Vital signs: Vital Signs Temperature 97.6 F 08/26/25 17:03 Pulse Rate 83 08/26/25 17:03 Respiratory Rate 16 08/26/25 17:03 Blood Pressure 143/100 H 08/26/25 17:03 Pulse Oximetry 100 08/26/25 17:03 Oxygen Delivery Room Air 08/26/25 17:03 Temperature 98.3 F 08/26/25 21:18 Pulse Rate 77 08/26/25 21:18 Respiratory Rate 15 08/26/25 21:18 Blood Pressure 121/80 08/26/25 21:18 Pulse Oximetry 97 08/26/25 21:18 Oxygen Delivery Room Air 08/26/25 18:01 [facility] MDM Narrative Medical decision making narrative: Patient presents with the above complaint. Initial vitals are remarkable for no significant abnormalities. Physical examination as noted above. Plan discussed: laboratory analysis, EKG, imaging. Patient ordered aspirin, continuous cardiac monitoring, continuous pulse oximetry. Patient felt sensation of palpitations while on the monitor, reviewed the rhythm strip or about of 45 minutes stand and did see a single PVC. No obvious abnormal heart rhythms. Shared decision making performed patient regarding a period of observation for cardiac monitoring and potentially getting placed on a Holter monitor versus close outpatient follow-up with strict return precautions. Patient notes that she feels well at this time would like to go home. Patient was reassessed at the bedside. No changes in physical exam. Patient is in no acute distress. Patient tolerated all intake, feels well at this time, ambulating with a steady gait. The patient has remained stable throughout the entire ED visit. Counseled patient regarding diagnostic results and potential diagnosis. Anticipatory guidance provided. Patient instructed to follow up with PCP within the next 2 days. Patient counseled on: false reassurance from an emergency department evaluation; no current evidence of a medical emergency; return immediately for any new, recurrent, worsening, concerning, or refractory symptoms. Additional verbal and printed discharge instructions were given and discussed with the patient. Patient verbally acknowledges understanding of condition and discharge instructions. All questions were answered to the patient's satisfaction. Patient is in agreement with the plan of care. The patient is stable for discharge and was discharged without incident. Differential Diagnosis Differential Diagnosis: Dysrhythmia, ACS, metabolic derangement, electrolyte derangement, pericarditis, myocarditis, pulmonary embolism, thyroid dysfunction, dehydration, orthostatic hypotension. Medical Records I have reviewed the following patient records and this information was taken into consideration when formulating the assessment and plan.: previous clinic visits (Stress test performed July 14, 2025.) Lab Data MDM Lab Attestation statement: I personally reviewed the patient's lab results. Lab results narrative: CBC reveals a white blood cell count 10.1, hemoglobin 11.4. Coags are within normal limits. D-dimer 0.30. Comprehensive metabolic panel reveals a glucose of 127. Troponin is less than 0.012. Repeat troponin is less than 0.012. Lipase is 195. HCG testing is negative. Magnesium is 2.0. 08/26/25 17:14 08/26/25 17:14 Labs: Lab Results 08/26/25 08/26/25 08/26/25 Range/Units 17:14 17:15 19:57 WBC 10.1 H (4.5-10.0) K/mm3 RBC 4.54 (4.2-5.4) M/mm3 Hgb 11.4 L (12.0-15.0) g/dL Hct 36.1 L (37.0-47.0) % MCV 79.5 L (80-100) fl MCH 25.1 L (26-34) pg MCHC 31.6 L (32-36) g/dl RDW 17.7 H (11.5-14.5) % Plt Count 308 (150-375) k/mm3 MPV 10.3 (7.4-10.4) fl Immature Gran % (Auto) 0.4 (0-0.5) % Neut % (Auto) 72.0 (45.5-73.1) % Lymph % (Auto) 21.7 (18.3-44.2) % [place] % (Auto) 4.5 (2.6-8.5) % Eos % (Auto) 0.9 (0-4.4) % Baso % (Auto) 0.5 (0.2-1.2) % Lymph # (Auto) 2.18 (0.9-3.2) K/mm3 [place] # (Auto) 0.5 (0.1-0.6) K/mm3 Eos # (Auto) 0.1 (0-0.3) K/mm3 Baso # (Auto) 0.1 (0.0-0.1) K/mm3 Abs Immat Gran (auto) 0.04 H (0.00-0.031) K/mm3 Absolute Neuts (auto) 7.2 H (1.3-6.7) K/mm3 Absolute Nucleated RBC 0.000 (0.0-0.012) K/mm3 Nucleated RBC % 0.0 (0.0-0.2) % PT 12.9 (11.1-14.7) Seconds INR 1.0 APTT 26.7 (22.3-36.8) Seconds D-Dimer 0.30 (<0.48) ug/mL Sodium 138 (137-145) mmol/L Potassium 3.8 (3.4-5.0) mmol/L Chloride 106 (98-107) mmol/L Carbon Dioxide 23 (22-30) mmol/L Anion Gap 9 (4-12) mmol/L BUN 12 (7-17) mg/dL Creatinine 0.91 (0.7-1.0) mg/dL Estim Creat Clear Calc 68 ml/min Estimated GFR > 60 (59 - ) Glucose 127 H (65-110) mg/dL Calcium 9.1 (8.4-10.2) mg/dL Magnesium 2.0 (1.6-2.3) mg/dL Total Bilirubin 0.3 (0.2-1.3) mg/dL AST 21 (14-36) U/L ALT 16 (6-35) U/L Alkaline Phosphatase 68 (38-126) U/L Troponin I < 0.012 < 0.012 (0.000-0.034) ng/mL Total Protein 7.8 (6.3-8.2) g/dL Albumin 4.7 (3.5-5.1) g/dL Lipase 195 (23-300) U/L Serum HCG, Qual Negative Imaging Data Radiologist's impression: ITS Impressions Chest X-Ray 08/26/25 17:38 Impression: No acute cardiopulmonary abnormality. ECG Data EKG #1: Attestation: I personally reviewed and interpreted this ECG as follows: ECG completion date: 08/26/25 ECG completion time: 17:11 Interpretation: Rate of 94, rhythm is sinus rhythm, axis is normal, no ST elevations or depressions, MS interval 148 milliseconds, QTC interval of 435 milliseconds, QRS duration of 77 milliseconds. Discharge Plan Discharge Clinical Impression: Chest pain, Palpitations, Shortness of breath, Near syncope Patient Disposition: Home Condition: Stable Instructions: Antibiotic Form, Chest Pain (ED), Heart Palpitations (ED), Near Syncope (ED), Premature Ventricular Contractions (ED), Shortness of Breath (ED) Additional Instructions: Follow-up promptly with your primary care physician in the next few days for reassessment and further workup as you will likely benefit from a long-term Holter monitor. Rest and stay well-hydrated and get your urine close to clear as a good marker of adequate hydration. Rise from a lying down or seated positions slowly and if you are feeling lightheaded lay flat on the ground and if the sensation does not pass promptly call EMS. Return immediately to the emergency department for any new or concerning symptoms especially any emergent concerns for life, limb, eyesight. Patient Language: [place] Prescriptions: No Action No Home Medications Follow-up/Referrals: Cole Soler MD [Primary Care Provider, Family Practice] - 2 Days Time of Disposition: 21:14 Quality HEART score for chest pain patients History: slightly suspicious ECG: normal Age: < or = to 45 years Risk factors: 1 or 2 risk factors Troponin: < or = to 1x normal limit Heart score: 1
--- NOTE | 2025-08-26 19:59 | ECG_ITS ---
Test Date: 2025-08-26 20:12:49 Measurements Intervals [place] Rate: 89 P: 62 NV: 153 QRS: 46 QRSD: 76 T: 53 QT: 357 QTc: 435 Interpretive Statements SINUS RHYTHM BASELINE ARTIFACT- I, II, AVR NORMAL ECG Compared to ECG 08/26/2025 17:11:28 No significant changes Electronically Signed On 08-27-2025 09:19:10 MACHINE DESIGNER by Aleksandr Perea D.O.
[2025-08-26 20:21] LABS: Magnesium 2.0 mg/dL (1.6-2.3)
[2025-08-26 20:32] LABS: Troponin I < 0.012 ng/mL (0.000-0.034)
[2025-08-26 20:36] LABS: SPREG INTERNAL CONTROL Positive; Serum Qual hCG Negative
== END 2025-08-26 21:22 | disposition home or self-care (01) ==
PROVIDERS: Emergency Medicine; Emergency Provider Student in an Organized Health Care Education/Training Program; PCP Emergency Medicine
DX: R07.89 Other chest pain (principal); R00.2 Palpitations; R06.02 Shortness of breath; R55 Syncope and collapse; Z97.5 Presence of (intrauterine) contraceptive device
CPT/HCPCS: 36415; 71046; 80053; 83690; 83735; 84484; 84703; 85025; 85380; 85610; 85730; 93005; 99284; A9270